=== PATIENT | male | born 1985 | race African-American/Black ===

== ENCOUNTER 2025-01-16 05:24 | Emergency (ER) | payer BC, OTHER ==
[2025-01-16 05:31] VITALS: BP 129/86; PULSE 61; RESP 20; TEMP 97.7; BMI 27.5
[2025-01-16] MEDS ORDERED: TETRACAINE 0.5% OPHTH SOLN 2 ML BOTTLE ONE (05:55)
[2025-01-16] MEDS ORDERED: FLUORESCEIN NA 1 EA STRIP ONE (05:55)
[2025-01-16] MEDS: FLUORESCEIN NA 1 EA STRIP OD ONE (05:56)
[2025-01-16] MEDS: TETRACAINE 0.5% HCL 0.6ML DROPPER.BOTTLE OD ONE (05:56)
== END 2025-01-16 06:33 | disposition home or self-care (01) ==
LOC: JER 05:24
DX: S05.01XA Injury of conjunctiva and corneal abrasion without foreign body, right eye, initial encounter (principal); X58.XXXA Exposure to other specified factors, initial encounter
CPT/HCPCS: 99283-25